=== PATIENT | male | born 1985 | race African-American/Black ===

== ENCOUNTER 2017-12-31 15:54 | Inpatient (IN) | payer OTHER, BC ==
--- NOTE | 2017-12-31 17:28 | PDOC ---
History of Present Illness - General Chief Complaint: Pain Stated Complaint: KNEE PAIN Time Seen by Provider: 12/31/17 16:16 History Source: Patient Exam Limitations: No Limitations - History of Present Illness Initial Comments: 32 y/o male presenting to [facility] ER via private auto complaining of right knee pain and swelling since Monday. Pt works with [employer] [place]. Symptoms began at work when he struck the knee on a garbage truck step. Was evaluated at both [facility] and Dr. Stu Watson orthopedic clinic on Monday Dr. Max told the pt he had a bad bone bruise. Pt has been using Advil and Naproxen, with some reported pain relief. Presents today for worsening pain and swelling with subjective fever and diaphoresis starting today. Denies bleeding or discharge. Is able to weight bare. Pain is worse when moving the knee out of a neutral position. Pt endorses monogamy in relationship without h/o STD or STD exposure. Denies PMH. No prescription medications. NKDA. No PCP of record. Past History - Past Medical History Allergies/Adverse Reactions: Allergies Allergy/AdvReac Type Severity Reaction Status Date / Time No Known Allergies Allergy Verified 12/31/17 16:04 Home Medications: Ambulatory Orders Ibuprofen 600 mg PO PRN 12/31/17 Naproxen 500 mg PO DAILY 12/31/17 COPD: No - Suicide/Smoking/Psychosocial Hx Smoking History: Current some day smoker Cigars Per Day: 1 Information on smoking cessation initiated: No Review of Systems - Review of Systems Constitutional: Yes: Diaphoresis, Fever. No: Chills Respiratory: No: Shortness of Breath Cardiac (ROS): No: Chest Pain ABD/GI: No: Constipated, Diarrhea, Nausea, Vomiting, Abdominal cramping Musculoskeletal: Yes: See HPI, Joint Pain, Joint Swelling Integumentary: Yes: Change in Color, Erythema *Physical Exam - Vital Signs Last Vital Signs Temp Pulse Resp BP Pulse Ox 98.5 F 105 H 20 147/83 99 12/31/17 15:59 12/31/17 15:59 12/31/17 15:59 12/31/17 15:59 12/31/17 15:59 - Physical Exam Comments: Constitutional: Well-developed, well-nourished no acute distress but obvious mild discomfort. Found semi fowlers in hospital bed. Alert and oriented x4. Answered all questions appropriately and completely. Speech was non-labored, non -pressured. HEENT: Normocephalic. No obvious external signs of trauma. Hearing grossly normal. No nasal discharge. Neck is supple, trachea is midline. No JVD. Cardiovascular: Regular rate and regular rhythm. No murmur, rubs, clicks, or gallops. Peripheral pulses: Radial pulses full. Respiratory: Breathing unlabored. Equal chest rise and fall. Clear to auscultation bilaterally. No stridor, no wheezing, no rhonchi. Gastrointestinal: abdomen is soft, non-tender, non-distended. Neuro: Alert and oriented. Moving all four extremities spontaneously. Skin/MSK: Warm and dry. Right knee: erythematous, hot, and enlarged on lateral aspect; small <1cm possible puncture wound; no lymphatic streaking; no obvious bony deformity or joint laxity. No other obvious lesions. Psych: Affect: appropriate. Mood: normal ED Treatment Course - LABORATORY CBC & Chemistry Diagram: 12/31/17 19:00 12/31/17 19:00 - RADIOLOGY Radiology Studies Ordered: Category Date Time Status KNEE 4 POS-RIGHT [RAD] Stat Radiology 12/31/17 17:02 Ordered Medical Decision Making - Medical Decision Making 32 y/o previously healthy male complaining of right knee pain, swelling, redness , and heat; acutely worsening over past two days. Traumatic injury on Monday on garbage truck surface. Afebrile. No hypotension but borderline tachycardia. Physical exam concerning for abscess with developing overlying cellulites. Low suspicion for fracture or tendon/muscle injury. Will obtain 4-view plain films, CBC, and CMP. Will start IV Zosyn. Ordered Toradol for pain relief. 12/31/17 19:07 Microblog sent to [facility] Hospitalist team for admission for IV abx therapy. Awaiting call back. 12/31/17 19:15 Leukoytosis to 17 noted. 12/31/17 19:[address] Cross telephone consulted with Dr. Valenzuela ( attending). *DC/Admit/Observation/Transfer Diagnosis at time of Disposition: Abscess of knee, right - Discharge Dispostion Condition at time of disposition: Good Decision to Admit order: Yes - Referrals - Patient Instructions - Post Discharge Activity
[2017-12-31] MEDS ORDERED: DIPHTH,PERTUSS(ACELL),TET 0.5 ML DISP.SYRIN IM ONE (17:29)
[2017-12-31] MEDS ORDERED: CEFAZOLIN 1 GM/D5W 1 GM/50 ML BAG IVPB ONE (18:40)
[2017-12-31] MEDS ORDERED: KETOROLAC TROMETHAMINE 30 MG/1 ML VIAL IVPUSH ONE (18:41)
[2017-12-31] MEDS ORDERED: ceFAZolin SODIUM 1 GM VIAL ONE (18:48)
[2017-12-31] MEDS ORDERED: KETOROLAC TROMETHAMINE 30 MG/1 ML VIAL ONE (18:49)
[2017-12-31] MEDS ORDERED: PIPERACILLIN/TAZOB 3.375 GM 3.375 GM in DEXTROSE 5%-WATER - 50 ML IVPB ONE (18:54)
[2017-12-31] MEDS ORDERED: PIPERACILLIN/TAZOB 3.375 GM 3.375 GM/50 ML BAG IVPB ONE (19:00)
[2017-12-31 19:10] LABS: BASO % 0.3 % (0-2.0); EOS % 0.1 % (0-4.5); HEMATOCRIT 45.3 % (35.4-49); HEMOGLOBIN 15.1 GM/dL (11.7-16.9); LYMPH % 7.9 % (8-40); MCH 27.9 pg (25.7-33.7); MCHC 33.4 g/dl (32.0-35.9); MEAN CELL VOLUME 83.8 fl (80-96); MEAN PLT VOLUME 8.8 fl (7.5-11.1); NEUT % 81.7 % (42.8-82.8); PLATELET COUNT 229 K/MM3 (134-434); RBC 5.41 M/mm3 (4.00-5.60); RDW 13.8 % (11.9-15.9)
--- NOTE | 2017-12-31 19:11 | PDOC ---
Attending Attestation - [facility] HPI: 12/31/17 19:16 The patient is a 32 year old male, with no significant past medical history, who presents to the ED complaining of right knee pain and swelling for the past 6 days. He reports that he was at work when he was struck on the knee by a garbage truck step causing the pain and swelling. He notes that he went to urgent and Dr. Stu Max (orthopedics) for evaluation. He was told that he had a bone bruise. He notes that his pain has been worsening and he has been diaphoretic lately. He has been using Advil and Naproxen for the pain with minimal relief. The patient is able to weight bare. Pain is worse when moving the knee out of a neutral position. The patient denies chest pain, shortness of breath, headache and dizziness. Denies fever, chills, nausea, vomiting, diarrhea or constipation. Denies dysuria , frequency, urgency and hematuria. Allergies: None Past surgical history: None reported Social History: No alcohol, tobacco or drug use reported - Physicial Exam PE: 12/31/17 19:15 Constitutional: Awake, alert, oriented. No acute distress. Head: Normocephalic. Atraumatic Eyes: PERRL. EOMI. Conjunctivae are not pale. ENT: Mucous membranes are moist and intact. Posterior pharynx without exudates or erythema. Uvula midline. Neck: Supple. Full ROM. No lymphadenopathy. Cardiovascular: Regular rate. Regular rhythm. S1, S2 regular. Distal pulses are 2+ and symmetric. Pulmonary/Chest: No evidence of respiratory distress. Clear to auscultation bilaterally No wheezing, rales or rhonchi. Abdominal: Soft and non-distended. There is no tenderness. No rebound, guarding or rigidity. No organomegaly. No palpable masses. Good bowel sounds. Back: No CVA tenderness. Musculoskeletal: (+) Right knee: erythematous, hot, and enlarged on lateral aspect; small <1cm possible puncture wound; no lymphatic streaking; no obvious bony deformity or joint laxity. No other obvious lesions. Tender and erythema is running down the lateral side of the right leg. No edema. No cyanosis. No clubbing. Full range of motion in all extremities. Nocalf tenderness. Radial/ pedal pulses are intact and 2+ bilaterally Skin: Skin is warm and dry. No petechiae. No purpura. Neurological: Alert and oriented to person, place, and time. Cranial nerves II -XII are grossly intact. Normal speech. Strength is grossly symmetric. No sensory deficits. Psychiatric: Good eye contact. Normal interaction, affect and behavior. <Bryce Fitch - Last Filed: 12/31/17 19:15> - Resident Resident Name: Gerry Echavarria - ED Attending Attestation I have performed the following: I have examined & evaluated the patient, The case was reviewed & discussed with the resident, I agree w/resident's findings & plan, Exceptions are as noted - HPI HPI: 12/31/17 19:10 32-year-old male who injured his knee while at work, he hit his knee with a garbage can and was seen by an orthopedist on Monday for his continued pain. He also went to urgent care Center for his continued pain and then presented to the emergency department today. - Medical Decision Making 12/31/17 20:06 plan IV guerasykristel, IMP cellulitis admit med/surg <Kavitha Valenzuela - Last Filed: 12/31/17 20:07>
[2017-12-31 19:36] LABS: ALBUMIN 4.6 g/dl (3.4-5.0); ANION GAP 9 MMOL/L (8-16); BLOOD UREA NITROGEN 9 mg/dL (7-18); CALCIUM 9.4 mg/dL (8.5-10.1); CHLORIDE 104 mmol/L (98-107); CO2 29 mmol/L (21-32); CREATININE 1.1 mg/dL (0.7-1.3); GLUCOSE,RANDOM 87 mg/dL (74-106); POTASSIUM 3.7 mmol/L (3.5-5.1); SGOT/AST 32 U/L (15-37); SGPT/ALT 35 U/L (12-78); SODIUM 142 mmol/L (136-145)
[2017-12-31 19:37] LABS: ALK PHOS 98 U/L (45-117); BILIRUBIN,TOTAL 0.8 mg/dL (0.2-1.0); TOT PROT 8.4 g/dl (6.4-8.2)
--- NOTE | 2017-12-31 19:48 | PN ---
Teaching Attending Note Name of Resident: Evy Wheeler ATTENDING PHYSICIAN STATEMENT I saw and evaluated the patient. I reviewed the resident's note and discussed the case with the resident. I agree with the resident's findings and plan as documented. SUBJECTIVE: Patient is a 32 year old man with history of tobacco use presenting to the ER with complaint of right knee pain and swelling 6 days. He works with [email or web address] [email or web address] and struck the knee on a garbage truck step. Was evaluated at both [facility] and Dr. Stu Watson orthopedic clinic on Monday Dr. Max told him he had a bad bone bruise. He has been using Advil and Naproxen, with some reported pain relief. Presents today for worsening pain and swelling with subjective fever and diaphoresis starting today. Denies bleeding or discharge. Is able to bear weight. Pain is worse when moving the knee out of a neutral position. OBJECTIVE: Alert Vital Signs Period Temp Pulse Resp BP Sys/Brady Pulse Ox Last 24 Hr 98.5 F 105 20 147/83 99 HEENT: No Jaundice, eye redness or discharge, PERRLA, EOMI. Normocephalic, atraumatic. External ears are normal and hearing is grossly intact. No nasal discharge. Neck: Supple, nontender. No palpable adenopathy or thyromegaly. No JVD Chest: Good effort. Clear to auscultation and percussion. Heart: Regular. No S3, rub or murmur Abdomen: Not distended, soft, nontender and no HSM. No rebound or guarding. Normoactive bowel sounds. Ext: Peripheral pulses intact. No leg edema. Right knee is erythematous, hot, and enlarged on lateral aspect. Skin: Warm and dry. No petechiae, rash or ecchymosis. Neuro: Alert. Oriented x3. CN 2-12 grossly intact. Sensation grossly intact in all four extremities and DTR are symmetric. Home Medications Medication Instructions Recorded Ibuprofen 600 mg PO PRN 12/31/17 Naproxen 500 mg PO DAILY 12/31/17 Abnormal Lab Results 12/31/17 19:00 WBC 17.0 H Absolute Neuts (auto) 13.9 H Lymphocytes % 7.9 L Nucleated RBC % 1 H ASSESSMENT AND PLAN: 1. Right knee septic arthritis/abscess - CT scan being done to ascertain if there is an abscess than can be drained. Will treat with IV clindamycin and zosyn. Consult ID and Ortho. Recheck BP - may have undiagnosed hypertension. 2. Tobacco Use We will provide patient all the necessary assistance to facilitate smoking cessation and prescribe Nicotine patch. 3. DVT prophylaxis - Lovenox 40 mg SQ q 24 hours. 4. Advance directives - Full code
--- NOTE | 2017-12-31 20:38 | HP ---
CHIEF COMPLAINT: red knee pain and swelling PCP: unknown HISTORY OF PRESENT ILLNESS: 32 y/o male with no significant pmh presents to the ED with right knee pain and swelling since last monday. Patient works for the de[employer] of [employer] and states that last monday during his shift he banged kis knee on the garbage trunk step and was in pain however kept going through the shift. The next morning patient woe up and his knee was very swollen and painful so he went to urgent care and he was given naproxen. The next day he went to the ortho Dr. Max and imaging was done and he was told he just had some "bone bruising". However, patient was still experiencing a lot of pain and swelling, even feeling feverish (though never took his temperature) and came to the ED. Patient denies any N/V or diarrhea. ER course was notable for: (1)WBC was 17 (2)patient given ancef and zosyn and toradol for pain (3) Recent Travel: none PAST MEDICAL HISTORY: none PAST SURGICAL HISTORY: none Social History: Smoking: smokes cigars once in a blue [place] Alcohol: social drinker - drinks 1-2 beers on a weekend Drugs: denies Family History: father and sister have hemophilia Allergies No Known Allergies Allergy (Verified 12/31/17 16:04) HOME MEDICATIONS: Home Medications Medication Instructions Recorded Ibuprofen 600 mg PO PRN 12/31/17 Naproxen 500 mg PO DAILY 12/31/17 REVIEW OF SYSTEMS CONSTITUTIONAL: Absent: fever, chills, diaphoresis, generalized weakness, malaise, loss of appetite, weight change HEENT: Absent: rhinorrhea, nasal congestion, throat pain, throat swelling, difficulty swallowing, mouth swelling, ear pain, eye pain, visual changes CARDIOVASCULAR: Absent: chest pain, syncope, palpitations, irregular heart rate, lightheadedness , peripheral edema RESPIRATORY: Absent: cough, shortness of breath, dyspnea with exertion, orthopnea, wheezing, stridor, hemoptysis GASTROINTESTINAL: Absent: abdominal pain, abdominal distension, nausea, vomiting, diarrhea, constipation, melena, hematochezia GENITOURINARY: Absent: dysuria, frequency, urgency, hesitancy, hematuria, flank pain, genital pain MUSCULOSKELETAL: Present: joint swelling, myalgia Absent: arthralgia, back pain, neck pain SKIN: Absent: rash, itching, pallor HEMATOLOGIC/IMMUNOLOGIC: Absent: easy bleeding, easy bruising, lymphadenopathy, frequent infections ENDOCRINE: Absent: unexplained weight gain, unexplained weight loss, heat intolerance, cold intolerance NEUROLOGIC: Absent: headache, focal weakness or paresthesias, dizziness, unsteady gait, seizure, mental status changes, bladder or bowel incontinence PSYCHIATRIC: Absent: anxiety, depression, suicidal or homicidal ideation, hallucinations. PHYSICAL EXAMINATION Vital Signs - 24 hr 12/31/17 15:59 Temperature 98.5 F Pulse Rate 105 H Respiratory 20 Rate Blood Pressure 147/83 O2 Sat by Pulse 99 Oximetry (%) GENERAL: Awake, alert, and fully oriented, in no acute distress. NECK:no JVD appreciated. LUNGS: Lungs CTA B/L; no rales, rhonchi, or wheezing . HEART: Regular rate and rhythm, normal S1 and S2 without murmur, rub or gallop. ABDOMEN: Soft, nontender, not distended, normoactive bowel sounds, no guarding, no rebound, no masses. No hepatomegaly or splenomegaly. MUSCULOSKELETAL: R knee: warm, erythematous, tender to palpation, lateral margin of knee also erythematous, 4/5 strength . EXTREMITIES: warm, well perfused, no clubbing/cyanosis or edema NEUROLOGICAL: Cranial nerves II-XII intact. Normal speech. Normal gait. PSYCHIATRIC: Cooperative. Good eye contact. Appropriate mood and affect. SKIN: Warm, dry, normal turgor, no rashes or lesions noted, normal capillary refill. Laboratory Results - last 24 hr 12/31/17 12/31/17 19:00 19:00 WBC 17.0 H RBC 5.41 Hgb 15.1 Hct 45.3 MCV 83.8 MCH 27.9 MCHC 33.4 RDW 13.8 Plt Count 229 MPV 8.8 Absolute Neuts (auto) 13.9 H Neutrophils % 81.7 Lymphocytes % 7.9 L Monocytes % 10.0 Eosinophils % 0.1 Basophils % 0.3 Nucleated RBC % 1 H Sodium 142 Potassium 3.7 Chloride 104 Carbon Dioxide 29 Anion Gap 9 BUN 9 Creatinine 1.1 Creat Clearance w eGFR > 60 Random Glucose 87 Calcium 9.4 Total Bilirubin 0.8 AST 32 ALT 35 Alkaline Phosphatase 98 Total Protein 8.4 H Albumin 4.6 ASSESSMENT/PLAN: 32 y/o male with no significant PMH presents to the ED with one week history of right knee pain/swelling/erythema following work injury. #1: Right knee pain possible cellulitis vs. abcess -Final XRAY read pending -CT Scan of LE ordered to evaluate for any fluid collection -started patient on zosyn and clindamycin -pain control with morphine PRN -ID consulted -Ortho consulted DVT Prophylaxis: Lovenox 40 SQ daily Problem List - Problem (1) Abscess of knee, right Code(s): L02.415 - CUTANEOUS ABSCESS OF RIGHT LOWER LIMB Visit type - Emergency Visit Emergency Visit: Yes ED Registration Date: 12/31/17 Care time: The patient presented to the Emergency Department on the above date and was hospitalized for further evaluation of their emergent condition. - New Patient This patient is new to me today: Yes Date on this admission: 12/31/17 - Critical Care Critical Care patient: No Hospitalist Screening - Colonoscopy Questionnaire Colonoscopy Questionnaire: Colonoscopy Questionnaire - Patient: 50 - 75 years old and never had a screening colonoscopy: Unknown History of colon or rectal polyps, or CA: Unknown History of IBD, Crohn's disease or UC: Unknown History of abdominal radiation therapy as a child: Unknown - Relative: 1 with colon or rectal CA, or polyps at age 60 or younger: Unknown Colon or rectal CA diagnosed at age 45 or younger: Unknown Multiple relatives with colon or rectal CA: Unknown - Outcome: Screening Result: Negative Screen
[2017-12-31] MEDS: ENOXAPARIN NA (PORCINE) 40 MG/0.4 ML DISP.SYRIN SQ SCH (21:00)
[2017-12-31] MEDS ORDERED: ENOXAPARIN NA (PORCINE) 40 MG/0.4 ML DISP.SYRIN SQ ONE (21:16)
[2017-12-31] MEDS ORDERED: MORPHINE SULFATE 2 MG/ML VIAL IVPUSH ONE (22:15)
[2017-12-31] MEDS ORDERED: MORPHINE SULFATE 2 MG/ML VIAL IVPUSH PRN (22:55)
[2017-12-31] MEDS ORDERED: DEXTROSE 5%-WATER - 50 ML IVPB ONE (23:23)
[2017-12-31] MEDS ORDERED: PIPERACILLIN/TAZOBACTAM 3.375 GM VIAL IVPB ONE (23:23)
[2017-12-31] MEDS: CLINDAMYCIN HCL 150 MG CAPSULE (FP) PO SCH (23:34)
[2018-01-01] MEDS ORDERED: PIPERACILLIN/TAZOB 3.375 GM 3.375 GM in DEXTROSE 5%-WATER - 50 ML IVPB ONE (01:00)
[2018-01-01 03:18] VITALS: BMI 22.4
[2018-01-01] MEDS: CLINDAMYCIN HCL 150 MG CAPSULE (FP) PO SCH ×2 (05:46→11:46)
[2018-01-01 07:29] LABS: HEMATOCRIT 41.1 % (35.4-49); HEMOGLOBIN 13.7 GM/dL (11.7-16.9); MCH 27.7 pg (25.7-33.7); MCHC 33.2 g/dl (32.0-35.9); MEAN CELL VOLUME 83.5 fl (80-96); PLATELET COUNT 192 K/MM3 (134-434); RBC 4.92 M/mm3 (4.00-5.60); RDW 14.2 % (11.9-15.9); WHITE BLOOD COUNT 14.1 K/mm3 (4.0-10.0)
[2018-01-01 08:01] LABS: CHLORIDE 103 mmol/L (98-107); POTASSIUM 3.7 mmol/L (3.5-5.1); SODIUM 142 mmol/L (136-145)
[2018-01-01 08:11] LABS: ALBUMIN 3.6 g/dl (3.4-5.0); ALK PHOS 85 U/L (45-117); ANION GAP 10 MMOL/L (8-16); BILIRUBIN,TOTAL 0.9 mg/dL (0.2-1.0); BLOOD UREA NITROGEN 12 mg/dL (7-18); CALCIUM 8.6 mg/dL (8.5-10.1); CO2 29 mmol/L (21-32); CREATININE 1.1 mg/dL (0.7-1.3); GLUCOSE,RANDOM 98 mg/dL (74-106); MAGNESIUM 1.8 mg/dL (1.8-2.4); PHOSPHOROUS 3.5 mg/dL (2.5-4.9); SGOT/AST 28 U/L (15-37); SGPT/ALT 34 U/L (12-78); TOT PROT 6.9 g/dl (6.4-8.2)
--- NOTE | 2018-01-01 09:45 | CONSULT ---
Consult - text type - Consultation Consultation Note: FULL CONSULT DICTATED IMP: CELLULITIS AND SMALL SUPERFICIAL ABSCESS ANTERIOR RIGHT KNEE - NO INTRAARTICULAR EXTENSION PLAN: IV ABX PER ID - WILL FOLLOW
--- NOTE | 2018-01-01 11:09 | CONS ---
DATE OF CONSULTATION: 01/01/2018 HISTORY: The patient is a 32-year-old male well known to me. I had seen the patient in my office last week. 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 There was no puncture antoine at that time just a great deal of pain. The patient presented to my office a few days later and complained of worsening pain inside of his knee. At that time, x-rays were performed, which were negative. A presumptive diagnosis at that time was made of a severe contusion, possible hematoma in the anterior aspect of his knee/prepatellar region. Patient admitted last night through the emergency room complaining of worsening pain in his knee and had a white count of 17,000. The patient was placed on antibiotic and cultured. Currently his white count is down to 14. He is afebrile but still complaining of a great deal of pain. PHYSICAL EXAMINATION: His right knee reveals erythema extending in the anterior aspect of his knee from superior patella down toward the tibial tubercle and from anterior down to the lateral side of the knee. There is a slight blistering of the skin over the patella lateral border. No obvious fluctuance. He has good range of motion of the knee itself with no effusion inside the knee. No lymphangitis. No lymphadenopathy. Calf is soft, nontender, neurovascularly intact. the knee. DIAGNOSTIC DATA: New x-ray is performed in the hospital, and a CAT scan failed to show any foreign body or fracture. IMPRESSION: Cellulitis, slight abscess possibly anterior and lateral aspect of the prepatellar region, questionably if there was some sort of puncture from the fall that was not apparent initially. PLAN: IV antibiotics as per Infectious Disease. Elevation. I will follow the patient. If a specific abscess demarcates itself, the patient may require irrigation and debridement. At this point, there is no place to open or culture. CHRISTOPHER ALAMO M.D. [id number]
--- NOTE | 2018-01-01 11:15 | PN ---
Physical Exam: SUBJECTIVE: Patient seen and examined Patient is feeling better, with no acute distress, no fever or chills. OBJECTIVE: Vital Signs Temperature 99.8 F H 01/01/18 05:42 Pulse Rate 95 H 01/01/18 05:42 Respiratory Rate 17 01/01/18 05:42 Blood Pressure 106/64 01/01/18 05:42 O2 Sat by Pulse Oximetry (%) 100 12/31/17 21:06 GENERAL: The patient is awake, alert, and fully oriented, in no acute distress. HEAD: Normal with no signs of trauma. EYES: PERRL, extraocular movements intact, sclera anicteric, conjunctiva clear. No ptosis. ENT: Ears normal, nares patent, oropharynx clear without exudates, moist mucous membranes. NECK: Trachea midline, full range of motion, supple. LUNGS: Breath sounds equal, clear to auscultation bilaterally, no wheezes, no crackles, no accessory muscle use. HEART: Regular rate and rhythm, S1, S2 without murmur, rub or gallop. ABDOMEN: Soft, nontender, nondistended, normoactive bowel sounds, no guarding, no rebound, no hepatosplenomegaly, no masses. EXTREMITIES: 2+ pulses, warm, well-perfused, right knee warm to touch NEUROLOGICAL: Cranial nerves II through XII grossly intact. Normal speech, gait not observed. PSYCH: Normal mood, normal affect. SKIN: Warm, dry, normal turgor, no rashes or lesions noted CBCD WBC 14.1 K/mm3 (4.0-10.0) H 01/01/18 06:30 RBC 4.92 M/mm3 (4.00-5.60) 01/01/18 06:30 Hgb 13.7 GM/dL (11.7-16.9) 01/01/18 06:30 Hct 41.1 % (35.4-49) 01/01/18 06:30 MCV 83.5 fl (80-96) 01/01/18 06:30 MCHC 33.2 g/dl (32.0-35.9) 01/01/18 06:30 RDW 14.2 % (11.9-15.9) 01/01/18 06:30 Plt Count 192 K/MM3 (134-434) 01/01/18 06:30 MPV 9.0 fl (7.5-11.1) 01/01/18 06:30 CMP Sodium 142 mmol/L (136-145) 01/01/18 06:30 Potassium 3.7 mmol/L (3.5-5.1) 01/01/18 06:30 Chloride 103 mmol/L (98-107) 01/01/18 06:30 Carbon Dioxide 29 mmol/L (21-32) 01/01/18 06:30 Anion Gap 10 MMOL/L (8-16) 01/01/18 06:30 BUN 12 mg/dL (7-18) 01/01/18 06:30 Creatinine 1.1 mg/dL (0.7-1.3) 01/01/18 06:30 Creat Clearance w eGFR > 60 (>60) 01/01/18 06:30 Random Glucose 98 mg/dL (74-106) 01/01/18 06:30 Calcium 8.6 mg/dL (8.5-10.1) 01/01/18 06:30 Total Bilirubin 0.9 mg/dL (0.2-1.0) 01/01/18 06:30 AST 28 U/L (15-37) 01/01/18 06:30 ALT 34 U/L (12-78) 01/01/18 06:30 Alkaline Phosphatase 85 U/L (45-117) D 01/01/18 06:30 Total Protein 6.9 g/dl (6.4-8.2) 01/01/18 06:30 Albumin 3.6 g/dl (3.4-5.0) 01/01/18 06:30 Current Medications Generic Name Dose Route Start Last Admin Trade Name Freq PRN Reason Stop Dose Admin Clindamycin HCl 300 mg 01/01/18 00:00 01/01/18 05:46 Cleocin - PO 300 mg Q6HPO HORACIO Administration Enoxaparin Sodium 40 mg 12/31/17 20:30 12/31/17 21:00 Lovenox - SQ 40 mg DAILY HORACIO Administration Naproxen 375 mg 01/01/18 11:15 Naprosyn - PO BID [facility] Home Medications Medication Instructions Recorded Ibuprofen 600 mg PO PRN 12/31/17 Naproxen 500 mg PO DAILY 12/31/17 Sequential axial images were obtained from the lower thigh through the upper calf. Coronal and sagittal reconstructed images were also performed. There is no evidence of fracture, dislocation or acute bony abnormalities. No significant degenerative arthritic changes are seen about the knee joint. There is no evidence of a joint effusion. There are edematous changes within the subcutaneous tissues anterior to the patella and extending through the level of the upper tibia. This could represent cellulitis. No discrete fluid collection suspicious for an abscess is identified. Clinical correlation and follow-up is now recommended. IMPRESSION: 1. No evidence of acute bony abnormalities. 2. Edematous changes within the subcutaneous tissues tear to the patella extending through the upper tibia. This suggests cellulitis without abscess formation. Clinical correlation and follow-up recommended. Please see above discussion. Reported By: Jose Manuel Frederick MD 01/01/18 1114 A/P: Patient is a 32 y/o male with no significant PMH presents to the ED with one week history of right knee pain/swelling/erythema. due to banging his knee on the garbage truck- wearing shorts ,last Monday # Acute Cellulitis of Right knee with pain but no abcess reproted : CT Scan of LE result as above on IV , on IV zosyn and vanco as per ID -patiet is refusing morphine, started the patient on Naprosyn 375 BID with food , patient was on Motrin at home -ID consulted and Ortho consulted appreciated. DVT Prophylaxis: Lovenox 40 SQ daily Visit type - Emergency Visit Emergency Visit: Yes ED Registration Date: 12/31/17 Care time: The patient presented to the Emergency Department on the above date and was hospitalized for further evaluation of their emergent condition. - New Patient This patient is new to me today: Yes Date on this admission: 01/01/18 - Critical Care Critical Care patient: No - Discharge Referral Referred to [facility] Med P.C.: No
[2018-01-01] MEDS: NAPROXEN 375 MG TABLET (FP) PO SCH ×2 (11:44→21:32)
[2018-01-01] MEDS: ENOXAPARIN NA (PORCINE) 40 MG/0.4 ML DISP.SYRIN SQ SCH (11:45)
--- NOTE | 2018-01-01 15:03 | PN ---
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
--- NOTE | 2018-01-01 15:28 | CONS ---
DATE OF CONSULTATION: DATE OF DICTATION: 01/01/2018 REQUESTING PHYSICIAN: Hospitalist service HISTORY: This is a 32-year-old man who last Alexsander injured his right knee. 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 He was wearing short at that time. The knee became very swollen, so [facility] who referred him to orthopaedics. The feeling was that he had probably just banged his leg very hard. There were no signs at that time of infection. He was treated with Naproxen. He continued to have pain and swelling. He started running a fever and came to the emergency room. In the ER, he had a white count of 17,000, and he was admitted for further evaluation. Not taken any antibiotics in the last week. He was wearing shorts at the time, but he does not recall having a skin abrasion. There is no history of any recent travel. PAST MEDICAL HISTORY: Negative. PAST SURGICAL HISTORY: He had stitches on the side of his leg due to an injury when he was a child also of the right lower extremity. SOCIAL HISTORY: Occasional cigar. Social alcohol. No drug use. FAMILY HISTORY: Mother and father with hemophilia. ALLERGIES: He has no known drug allergies. MEDICATIONS: He has been taking Naproxen. REVIEW OF SYSTEMS: He has felt feverish and has had chills. There has been no nausea, vomiting, diarrhea, or dysuria. PHYSICAL EXAMINATION: General: He is a pleasant young man in no acute distress. Vital Signs: Current temperature is 99.7, T-max 99.8, pulse of 102, blood pressure 114/65, respiratory rate is 18. HEENT: He is normocephalic. His eyes are anicteric. Neck: Supple. Lungs: Clear to auscultation. Heart: Regular rate and rhythm. Abdomen: Soft and nontender. Extremities: Notable for swelling and edema of the right knee. He is starting to have some areas of blistering on the lateral aspect. He has full range of motion of the knee and is able to bend it. His only restriction is a pressure sensation. DIAGNOSTIC DATA: He had a CAT scan of his lower leg done that showed no bony abnormalities. Edematous changes in the subcutaneous tissue suggestive of cellulitis without abscess formation. Labs are notable for a white count yesterday with 17, this morning 14. BUN 12, creatinine 1.1. Normal LFTs. Blood cultures are pending. In summary, this is a 32-year-old man with a soft tissue injury of his right leg with probable early abscess formation. I would treat him with vancomycin and Zosyn given the fact that this was a garbage truck injury, so we would need to cover for gram-negatives as well as gram-positive organisms. I suspect over the next 24-48 hours he will require drainage. The case was discussed with Dr. Max who is following the patient closely. Would continue the same antibiotics and follow up cultures. LALO VILLARREAL M.D. [id number]
[2018-01-01] MEDS ORDERED: DEXTROSE 5%-WATER 100 ML IVPB ONE (17:20)
[2018-01-01] MEDS ORDERED: PIPERACILLIN/TAZOBACTAM 4.5 GM VIAL IVPB ONE (17:20)
[2018-01-01] MEDS: PIPERACILLIN/TAZOB 4.5 GM 4.5 GM in DEXTROSE 5%-WATER 100 ML IVPB SCH ×2 (17:24→17:26)
[2018-01-01] MEDS: VANCOMYCIN 1,000 MG in DEXTROSE 5%-WATER - 250 ML IVPB SCH (17:27)
[2018-01-02] MEDS: PIPERACILLIN/TAZOB 4.5 GM 4.5 GM in DEXTROSE 5%-WATER 100 ML IVPB SCH ×3 (02:13→18:08)
[2018-01-02] MEDS ORDERED: PIPERACILLIN/TAZOBACTAM 4.5 GM VIAL IVPB ONE ×3 (03:48→16:22)
[2018-01-02] MEDS ORDERED: DEXTROSE 5%-WATER 100 ML IVPB ONE ×3 (03:49→16:22)
[2018-01-02] MEDS: VANCOMYCIN 1,000 MG in DEXTROSE 5%-WATER - 250 ML IVPB SCH ×2 (04:58→16:10)
[2018-01-02 07:27] LABS: BASO % 0.2 % (0-2.0); EOS % 0.3 % (0-4.5); HEMATOCRIT 41.1 % (35.4-49); HEMOGLOBIN 13.6 GM/dL (11.7-16.9); LYMPH % 9.3 % (8-40); MCH 27.6 pg (25.7-33.7); MEAN CELL VOLUME 83.7 fl (80-96); MEAN PLT VOLUME 8.8 fl (7.5-11.1); MONO % 8.4 % (3.8-10.2); NEUT % 81.8 % (42.8-82.8); PLATELET COUNT 192 K/MM3 (134-434); RBC 4.92 M/mm3 (4.00-5.60); RDW 14.3 % (11.9-15.9); WHITE BLOOD COUNT 11.1 K/mm3 (4.0-10.0)
[2018-01-02 07:47] LABS: ALBUMIN 3.6 g/dl (3.4-5.0); ANION GAP 12 MMOL/L (8-16); BLOOD UREA NITROGEN 13 mg/dL (7-18); CALCIUM 8.9 mg/dL (8.5-10.1); CHLORIDE 101 mmol/L (98-107); CO2 29 mmol/L (21-32); GLUCOSE,RANDOM 122 mg/dL (74-106); POTASSIUM 3.8 mmol/L (3.5-5.1); SGOT/AST 41 U/L (15-37); SGPT/ALT 50 U/L (12-78); SODIUM 142 mmol/L (136-145)
[2018-01-02 07:50] LABS: ALK PHOS 96 U/L (45-117); BILIRUBIN,TOTAL 0.9 mg/dL (0.2-1.0); TOT PROT 7.2 g/dl (6.4-8.2)
[2018-01-02] MEDS ORDERED: PT OWN MED DRAWER 7, Y5N ONE ×2 (09:29→15:49)
[2018-01-02] MEDS: NAPROXEN 375 MG TABLET (FP) PO SCH ×2 (11:07→22:02)
[2018-01-02] MEDS: ENOXAPARIN NA (PORCINE) 40 MG/0.4 ML DISP.SYRIN SQ SCH (11:08)
--- NOTE | 2018-01-02 11:19 | PN ---
Progress Note (short form) - Note Progress Note: Ortho Pt seen and examined- right knee feeling better
--- NOTE | 2018-01-02 11:21 | PN ---
Progress Note (short form) - Note Progress Note: Ortho Pt seen and examined- right knee feeling better Selected Entries 01/02/18 09:00 Temperature 99.0 F Pulse Rate 80 Respiratory 18 Rate Blood Pressure 122/73 Laboratory Tests 01/02/18 06:30 WBC 11.1 H Hgb 13.6 Hct 41.1 Plt Count 192 + blister on lateral aspect of knee, fluid filled, decr pain, incr rom, calf soft, nt, nvi a/p consent obtained, under sterile technique, I&D performed, purulent drainage noted and sent for culture, sterile pressure dressing applied, procedure tolerated well Abx as per ID rom exercises will follow d/w Dr. Max
--- NOTE | 2018-01-02 14:43 | PN ---
Physical Exam: SUBJECTIVE: Patient seen and examined at bedside. No acute complaints. Endorses decrease in size and pain of right knee lesion. OBJECTIVE: Vital Signs Period Temp Pulse Resp BP Sys/Brady Pulse Ox Last 24 Hr 98.1 F-99.7 F 71-102 18-18 114-127/59-73 GENERAL: A&Ox3, NAD HEAD: NC/AT EYES: PERRLA, EOMI ENT: moist mucous membranes NECK: Trachea midline, full range of motion, supple. LUNGS: CTA b/l HEART: RRR no m/r/g ABDOMEN: +bs, soft, NTND, no HSM, no masses EXTREMITIES: 2+ pulses, warm, well-perfused, no edema; non-tender 3cm fluid filled blister overlying right knee NEUROLOGICAL: CN II-XII intact, 5/5 strength throughout, sensorium intact PSYCH: Normal mood, normal affect. Laboratory Results - last 24 hr 01/02/18 01/02/18 06:30 06:30 WBC 11.1 H RBC 4.92 Hgb 13.6 Hct 41.1 MCV 83.7 MCH 27.6 MCHC 33.0 RDW 14.3 Plt Count 192 MPV 8.8 Absolute Neuts (auto) 9.1 H Neutrophils % 81.8 Lymphocytes % 9.3 Monocytes % 8.4 Eosinophils % 0.3 D Basophils % 0.2 Nucleated RBC % 0 Sodium 142 Potassium 3.8 Chloride 101 Carbon Dioxide 29 Anion Gap 12 BUN 13 Creatinine 1.0 Creat Clearance w eGFR > 60 Random Glucose 122 H D Calcium 8.9 Total Bilirubin 0.9 AST 41 H D ALT 50 D Alkaline Phosphatase 96 D Total Protein 7.2 Albumin 3.6 Active Medications Generic Name Dose Route Start Last Admin Trade Name Freq PRN Reason Stop Dose Admin Enoxaparin Sodium 40 mg 12/31/17 20:30 01/02/18 11:08 Lovenox - SQ 40 mg DAILY HORACIO Administration Vancomycin HCl 1,000 mg/ 250 mls @ 166.667 mls/hr 01/01/18 16:00 01/02/18 04: 58 Dextrose IVPB 166.667 mls/hr Q12H HORACIO Administration Protocol Piperacillin Sod/Tazobactam 100 mls @ 200 mls/hr 01/01/18 15:00 01/02/18 11: 04 Sod 4.5 gm/ Dextrose IVPB 200 mls/hr Q8H-IV HORACIO Administration Protocol Naproxen 375 mg 01/01/18 11:30 01/02/18 11:07 Naprosyn - PO 375 mg BID HORACIO Administration ASSESSMENT/PLAN: 32 y/o M w/ no significant PMHx admitted for cellulitis/cutaneous abscess overlying right knee 2/2 trauma involving garbage truck #cellulitis/cutaneous abscess -WBC 17 on admission, now 11.1 -Vanc/Zosyn day 2 -ID consulted (Dr. Guzman) -ortho consulted (Dr. Max), underwent I&D and pending culture -BCx NGTD #FEN -no IVF -lytes wnl -sodium controlled diet #DVT PPx -lovenox 40sq #dispo -med/surg Visit type - Emergency Visit Emergency Visit: No - New Patient This patient is new to me today: Yes Date on this admission: 01/02/18 - Critical Care Critical Care patient: No
--- NOTE | 2018-01-02 16:42 | PN ---
Teaching Attending Note Name of Resident: Patrice Deshpande ATTENDING PHYSICIAN STATEMENT I saw and evaluated the patient. I reviewed the resident's note and discussed the case with the resident. I agree with the resident's findings and plan as documented. SUBJECTIVE: OBJECTIVE: Vital Signs Temperature 98.5 F 01/02/18 15:13 Pulse Rate 79 01/02/18 15:13 Respiratory Rate 18 01/02/18 15:13 Blood Pressure 104/55 01/02/18 15:13 O2 Sat by Pulse Oximetry (%) 100 01/02/18 09:00 CBCD WBC 11.1 K/mm3 (4.0-10.0) H 01/02/18 06:30 RBC 4.92 M/mm3 (4.00-5.60) 01/02/18 06:30 Hgb 13.6 GM/dL (11.7-16.9) 01/02/18 06:30 Hct 41.1 % (35.4-49) 01/02/18 06:30 MCV 83.7 fl (80-96) 01/02/18 06:30 MCHC 33.0 g/dl (32.0-35.9) 01/02/18 06:30 RDW 14.3 % (11.9-15.9) 01/02/18 06:30 Plt Count 192 K/MM3 (134-434) 01/02/18 06:30 MPV 8.8 fl (7.5-11.1) 01/02/18 06:30 CMP Sodium 142 mmol/L (136-145) 01/02/18 06:30 Potassium 3.8 mmol/L (3.5-5.1) 01/02/18 06:30 Chloride 101 mmol/L (98-107) 01/02/18 06:30 Carbon Dioxide 29 mmol/L (21-32) 01/02/18 06:30 Anion Gap 12 MMOL/L (8-16) 01/02/18 06:30 BUN 13 mg/dL (7-18) 01/02/18 06:30 Creatinine 1.0 mg/dL (0.7-1.3) 01/02/18 06:30 Creat Clearance w eGFR > 60 (>60) 01/02/18 06:30 Random Glucose 122 mg/dL (74-106) H D 01/02/18 06:30 Calcium 8.9 mg/dL (8.5-10.1) 01/02/18 06:30 Total Bilirubin 0.9 mg/dL (0.2-1.0) 01/02/18 06:30 AST 41 U/L (15-37) H D 01/02/18 06:30 ALT 50 U/L (12-78) D 01/02/18 06:30 Alkaline Phosphatase 96 U/L (45-117) D 01/02/18 06:30 Total Protein 7.2 g/dl (6.4-8.2) 01/02/18 06:30 Albumin 3.6 g/dl (3.4-5.0) 01/02/18 06:30 Current Medications Generic Name Dose Route Start Last Admin Trade Name Freq PRN Reason Stop Dose Admin Enoxaparin Sodium 40 mg 12/31/17 20:30 01/02/18 11:08 Lovenox - SQ 40 mg DAILY HORACIO Administration Vancomycin HCl 1,000 mg/ 250 mls @ 166.667 mls/hr 01/01/18 16:00 01/02/18 16: 10 Dextrose IVPB 166.667 mls/hr Q12H HORACIO Administration Protocol Piperacillin Sod/Tazobactam 100 mls @ 200 mls/hr 01/01/18 15:00 01/02/18 11: 04 Sod 4.5 gm/ Dextrose IVPB 200 mls/hr Q8H-IV HORACIO Administration Protocol Naproxen 375 mg 01/01/18 11:30 01/02/18 11:07 Naprosyn - PO 375 mg BID HORACIO Administration Home Medications Medication Instructions Recorded Ibuprofen 600 mg PO PRN 12/31/17 Naproxen 500 mg PO DAILY 12/31/17 Microbiology 12/31/17 19:05 Blood - Peripheral Venous Blood Culture - Preliminary NO GROWTH OBTAINED AFTER 24 HOURS, INCUBATION TO CONTINUE FOR 4 DAYS. 12/31/17 19:05 Blood - Peripheral Venous Blood Culture - Preliminary NO GROWTH OBTAINED AFTER 24 HOURS, INCUBATION TO CONTINUE FOR 4 DAYS. Laboratory Tests 12/31/17 01/01/18 01/02/18 19:00 06:30 06:30 WBC 17.0 H 14.1 H 11.1 H Sequential axial images were obtained from the lower thigh through the upper calf. Coronal and sagittal reconstructed images were also performed. There is no evidence of fracture, dislocation or acute bony abnormalities. No significant degenerative arthritic changes are seen about the knee joint. There is no evidence of a joint effusion. There are edematous changes within the subcutaneous tissues anterior to the patella and extending through the level of the upper tibia. This could represent cellulitis. No discrete fluid collection suspicious for an abscess is identified. Clinical correlation and follow-up is now recommended. IMPRESSION: 1. No evidence of acute bony abnormalities. 2. Edematous changes within the subcutaneous tissues tear to the patella extending through the upper tibia. This suggests cellulitis without abscess formation. Clinical correlation and follow-up recommended. Please see above discussion. Reported By: Jose Manuel Frederick MD 01/01/18 1114 ASSESSMENT AND PLAN: Patient is a 32 y/o male with no significant PMH presents to the ED with one week history of right knee pain/swelling/erythema. due to banging his knee on the garbage truck- wearing shorts ,last Monday # Acute Cellulitis of Right knee with pain but no abcess reported : CT Scan of LE result as above on IV , on IV zosyn and vanco as per ID -patient is refusing morphine, started the patient on Naprosyn 375 BID with food, patient was on Motrin at home # s/p I&D by 's PA , with purulent drainage as per 's PA , pending culture of the wound -ID consulted and Ortho consulted appreciated. # Acute Leukocytosis improving DVT Prophylaxis: Lovenox 40 SQ daily follow the wound Culture
[2018-01-02] MEDS ORDERED: KETOROLAC TROMETHAMINE 30 MG/1 ML VIAL IVPUSH ONE (16:50)
--- NOTE | 2018-01-02 18:01 | PN ---
Progress Note (short form) - Note Progress Note: abscess drained at bedside this am Vital Signs Period Temp Pulse Resp BP Sys/Brady Pulse Ox Last 24 Hr 98.1 F-99.0 F 71-88 18-18 104-127/55-73 100 knee with large amount of purulent blood still draining CBC, BMP 01/02/18 06:30 01/02/18 06:30 Microbiology 12/31/17 19:05 Blood - Peripheral Venous Blood Culture - Preliminary NO GROWTH OBTAINED AFTER 24 HOURS, INCUBATION TO CONTINUE FOR 4 DAYS. 12/31/17 19:05 Blood - Peripheral Venous Blood Culture - Preliminary NO GROWTH OBTAINED AFTER 24 HOURS, INCUBATION TO CONTINUE FOR 4 DAYS. imp/reccd 32 year old man banged his knee on the garbage truck- wearing shorts-last Monday painful knee- [facility]-given naprosyn for pain developed fever and worsening erythema and pain and came to ED s/p drainage of the knee abscess continue vanco/zosyn f/u culture f/u vanco trough ordered for am Problem List - Problems (1) Abscess of knee, right Code(s): L02.415 - CUTANEOUS ABSCESS OF RIGHT LOWER LIMB
[2018-01-03] MEDS ORDERED: DEXTROSE 5%-WATER 100 ML IVPB ONE ×2 (00:36→09:45)
[2018-01-03] MEDS ORDERED: PIPERACILLIN/TAZOBACTAM 4.5 GM VIAL IVPB ONE ×2 (00:36→09:45)
[2018-01-03] MEDS: PIPERACILLIN/TAZOB 4.5 GM 4.5 GM in DEXTROSE 5%-WATER 100 ML IVPB SCH ×2 (02:19→10:33)
[2018-01-03] MEDS: VANCOMYCIN 1,000 MG in DEXTROSE 5%-WATER - 250 ML IVPB SCH ×2 (03:35→17:11)
[2018-01-03 07:39] LABS: ANION GAP 5 MMOL/L (8-16); BLOOD UREA NITROGEN 12 mg/dL (7-18); CALCIUM 8.9 mg/dL (8.5-10.1); CHLORIDE 102 mmol/L (98-107); CO2 33 mmol/L (21-32); GLUCOSE,RANDOM 90 mg/dL (74-106); POTASSIUM 3.9 mmol/L (3.5-5.1); SODIUM 140 mmol/L (136-145)
[2018-01-03 07:40] LABS: CREATININE 1.1 mg/dL (0.7-1.3)
[2018-01-03 07:47] LABS: BASO % 0.5 % (0-2.0); EOS % 0.8 % (0-4.5); HEMATOCRIT 41.2 % (35.4-49); HEMOGLOBIN 13.6 GM/dL (11.7-16.9); MCH 27.7 pg (25.7-33.7); MCHC 33.1 g/dl (32.0-35.9); MEAN CELL VOLUME 83.9 fl (80-96); MEAN PLT VOLUME 8.6 fl (7.5-11.1); NEUT % 73.7 % (42.8-82.8); PLATELET COUNT 210 K/MM3 (134-434); RBC 4.91 M/mm3 (4.00-5.60); RDW 13.8 % (11.9-15.9); WHITE BLOOD COUNT 8.3 K/mm3 (4.0-10.0)
--- NOTE | 2018-01-03 08:49 | PN ---
Physical Exam: SUBJECTIVE: Patient seen and examined at bedside. No acute complaints. Had I&D of R knee lesion, pain under control. Having normal BMs and urination. OBJECTIVE: Vital Signs Period Temp Pulse Resp BP Sys/Brady Pulse Ox Last 24 Hr 98.4 F-99.1 F 72-80 18-20 104-122/55-76 100 GENERAL: A&Ox3, NAD HEAD: NC/AT EYES: PERRLA, EOMI ENT: moist mucous membranes NECK: Trachea midline, full range of motion, supple. LUNGS: CTA b/l HEART: RRR no m/r/g ABDOMEN: +bs, soft, NTND, no HSM, no masses EXTREMITIES: 2+ pulses, warm, well-perfused, no edema; R knee in surgical dressing NEUROLOGICAL: CN II-XII intact, 5/5 strength throughout, sensorium intact PSYCH: Normal mood, normal affect Laboratory Results - last 24 hr 01/03/18 01/03/18 06:20 06:20 WBC 8.3 RBC 4.91 Hgb 13.6 Hct 41.2 MCV 83.9 MCH 27.7 MCHC 33.1 RDW 13.8 Plt Count 210 MPV 8.6 Absolute Neuts (auto) 6.1 Neutrophils % 73.7 Lymphocytes % 13.0 D Monocytes % 12.0 H Eosinophils % 0.8 D Basophils % 0.5 Nucleated RBC % 0 Sodium 140 Potassium 3.9 Chloride 102 Carbon Dioxide 33 H Anion Gap 5 L BUN 12 Creatinine 1.1 Creat Clearance w eGFR > 60 Random Glucose 90 D Calcium 8.9 Active Medications Generic Name Dose Route Start Last Admin Trade Name Valenteq PRN Reason Stop Dose Admin Enoxaparin Sodium 40 mg 12/31/17 20:30 01/02/18 11:08 Lovenox - SQ 40 mg DAILY HORACIO Administration Vancomycin HCl 1,000 mg/ 250 mls @ 166.667 mls/hr 01/01/18 16:00 01/03/18 03: 35 Dextrose IVPB 166.667 mls/hr Q12H HORACIO Administration Protocol Piperacillin Sod/Tazobactam 100 mls @ 200 mls/hr 01/01/18 15:00 01/03/18 02: 19 Sod 4.5 gm/ Dextrose IVPB 200 mls/hr Q8H-IV HORACIO Administration Protocol Naproxen 375 mg 01/01/18 11:30 09/04/18 22:02 Naprosyn - PO 375 mg BID HORACIO Administration ASSESSMENT/PLAN: 32 y/o M w/ no significant PMHx admitted for cellulitis/cutaneous abscess overlying right knee 2/2 trauma involving garbage truck #cellulitis/cutaneous abscess -WBC down to 8.3 -s/p bedside I&D (Dr. Max) -from Dr. Max's note: "PATIENT'S CONDITION IS WORSE TODAY. 5CC OF PUS EXPRESSED FROM WOUND. I THEREFORE HAVE SCHEDULED HIM FOR AN I&D TOMORROW IN THE OR. CONTINUE IV ABX FOR NOW. PATIENT ATE BREAKFAST TODAY SO WE CANT OPERATE FOR 8 HOURS. " -Patient was reluctant to go to OR but now agrees -NPO after midnight -Lovenox held -Wound Cx MSSA, BCx NGTD -Vancomycin day 3 -Zosyn d/c'd per ID -ID consulted (Dr. Guzman) -BCx NGTD -Naproxen for pain, two one-time doses of ketorolac 30 -PT consulted #FEN -no IVF -lytes wnl -sodium controlled diet #DVT PPx -lovenox held #dispo -med/surg Visit type - Emergency Visit Emergency Visit: No - New Patient This patient is new to me today: No - Critical Care Critical Care patient: No
[2018-01-03] MEDS ORDERED: PT OWN MED DRAWER 7, Y5N ONE ×3 (09:45→17:08)
--- NOTE | 2018-01-03 10:11 | PN ---
Progress Note (short form) - Note Progress Note: PATIENT'S CONDITION IS WORSE TODAY. 5CC OF PUS EXPRESSED FROM WOUND. I THEREFORE HAVE SCHEDULED HIM FOR AN I&D TOMORROW IN THE OR. CONTINUE IV ABX FOR NOW. PATIENT ATE BREAKFAST TODAY SO WE CANT OPERATE FOR 8 HOURS.
[2018-01-03] MEDS: NAPROXEN 375 MG TABLET (FP) PO SCH ×2 (10:33→22:02)
[2018-01-03] MEDS: ENOXAPARIN NA (PORCINE) 40 MG/0.4 ML DISP.SYRIN SQ SCH (10:33)
--- NOTE | 2018-01-03 16:33 | PN ---
Progress Note (short form) - Note Progress Note: afebrile still with purulent drainage from the knee for opeerative debridement in the am Vital Signs Period Temp Pulse Resp BP Sys/Brady Pulse Ox Last 24 Hr 98.4 F-99.1 F 72-101 18-20 107-130/67-87 98 knee is fluctuant some purulent drainage noted CBC, BMP 01/03/18 06:20 01/03/18 06:20 Microbiology 01/02/18 11:15 Knee - Right Gram Stain - Final 01/02/18 11:15 Knee - Right Wound Culture - Preliminary Presumptive Mssa (Pbp2a Neg) 12/31/17 19:05 Blood - Peripheral Venous Blood Culture - Preliminary NO GROWTH OBTAINED AFTER 48 HOURS, INCUBATION TO CONTINUE FOR 3 DAYS. 12/31/17 19:05 Blood - Peripheral Venous Blood Culture - Preliminary NO GROWTH OBTAINED AFTER 48 HOURS, INCUBATION TO CONTINUE FOR 3 DAYS. vanco trough pending imp/reccd s/p drainage of the knee abscess continue vancomycin d/c zosyn for operative drainage in am Problem List - Problems (1) Abscess of knee, right Code(s): L02.415 - CUTANEOUS ABSCESS OF RIGHT LOWER LIMB
--- NOTE | 2018-01-03 18:37 | PN ---
Teaching Attending Note Name of Resident: Adelaida Razo ATTENDING PHYSICIAN STATEMENT I saw and evaluated the patient. I reviewed the resident's note and discussed the case with the resident. I agree with the resident's findings and plan as documented. SUBJECTIVE: No fever or chills . has pain in R knee. OBJECTIVE: NAD CV: RRr Lungs; CTAB ext : R knee with increased warmth , small incision with no drainage . no knee effusion detected ASSESSMENT AND PLAN: 32 y/o lady with no significant PMH who presented with R knee pain and swelling. He was found to have cellulites of the knee with superficial abscess formation 1- cellulites of the knee with superficial abscess formation : - for I&D again tomoror w - abx : vanco . increase dose for low trough - off zosn - cx reviewed. will start DVT px after procedure tomorrow
[2018-01-04] MEDS ORDERED: VANCOMYCIN 1,250 MG in DEXTROSE 5%-WATER - 250 ML IVPB SCH ×2 (04:00→16:00)
[2018-01-04] MEDS ORDERED: VANCOMYCIN 1,250 MG in DEXTROSE 5%-WATER - 250 ML IVPB ONE (04:00)
[2018-01-04 08:15] LABS: BASO % 0.3 % (0-2.0); EOS % 0.9 % (0-4.5); HEMATOCRIT 45.2 % (35.4-49); LYMPH % 16.4 % (8-40); MCH 27.9 pg (25.7-33.7); MCHC 33.1 g/dl (32.0-35.9); MEAN CELL VOLUME 84.3 fl (80-96); MEAN PLT VOLUME 8.6 fl (7.5-11.1); MONO % 10.9 % (3.8-10.2); NEUT % 71.5 % (42.8-82.8); PLATELET COUNT 283 K/MM3 (134-434); RBC 5.37 M/mm3 (4.00-5.60); RDW 14.1 % (11.9-15.9); WHITE BLOOD COUNT 6.6 K/mm3 (4.0-10.0)
[2018-01-04 08:55] LABS: ANION GAP 11 MMOL/L (8-16); BLOOD UREA NITROGEN 14 mg/dL (7-18); CALCIUM 9.4 mg/dL (8.5-10.1); CHLORIDE 104 mmol/L (98-107); CO2 26 mmol/L (21-32); GLUCOSE,RANDOM 95 mg/dL (74-106); POTASSIUM 4.4 mmol/L (3.5-5.1); SODIUM 141 mmol/L (136-145)
[2018-01-04] MEDS ORDERED: PROPOFOL 20 ML ONE (09:55)
[2018-01-04] MEDS ORDERED: MIDAZOLAM HCL 2 MG/2 ML SINGLE DOSE VIAL ONE (09:56)
--- NOTE | 2018-01-04 10:06 | OP ---
Operative Note - Note: Operative Date: 01/04/18 Pre-Operative Diagnosis: right knee infected prepatellar bursa Operation: right knee open I and D and debridement pre patellar bursa Post-Operative Diagnosis: Same as Pre-op Surgeon: Daniel Ortiz [employer] Sales Representative: Luis Carlos Rush Anesthesiologist/PRODUCTION INTERN: Mitzi Montalvo Anesthesia: General Specimens Removed: soft tissue right pre patellar bursa Estimated Blood Loss (mls): 10 Drains, Volume Out (mls): 0 Blood Volume Replaced (mls): 0 Fluid Volume Replaced (mls): 0 Operative Report Dictated: Yes
[2018-01-04] MEDS ORDERED: BACITRACIN 50,000 UNITS VIAL TP ONE (10:28)
[2018-01-04] MEDS ORDERED: IBUPROFEN 800 MG/8 ML IJ IVPB PRN (10:53)
[2018-01-04] MEDS ORDERED: ONDANSETRON 4 MG/2 ML VIAL IVPUSH PRN (10:53)
[2018-01-04] MEDS ORDERED: LACTATED RINGERS SOLUTION 1,000 ML IV SCH (11:00)
--- NOTE | 2018-01-04 11:23 | OP ---
DATE OF OPERATION: 01/04/2018 PREOPERATIVE DIAGNOSIS: Infected right knee prepatellar bursa. POSTOPERATIVE DIAGNOSIS: Infected right knee prepatellar bursa. PROCEDURE: Open incision and drainage and debridement, right knee prepatellar bursa abscess. SURGEON: Alisha Solis MD COMMERCIAL INSTRUCTOR SUPERVISOR: MAGDALENA Sagastume ANESTHESIOLOGIST: Mitzi Montalvo MD ANESTHESIA: LMA anesthesia. DRAINS: One SHARRON drain. SPECIMEN: Soft tissue, right prepatellar bursa. BLOOD LOSS: Minimal. BLOOD GIVEN: None. FLUID REPLACEMENT: 500 mL. INDICATION: This patient is a 32-year-old male with preoperative diagnosis of an infection of the right knee prepatellar bursa, and it had already opened and decompressed to some degree. Patient understands the potential risk, complications, alternatives, and benefits of surgical versus nonsurgical treatment. DESCRIPTION OF PROCEDURE: The patient was brought into the operating room, peripheral IV placed and IV sedation given. LMA anesthesia was induced. He was placed into the supine position, and the right lower extremity was prepped and draped in a sterile fashion, elevated, and exsanguinated with Esmarch bandage, and tourniquet inflated to 250 mmHg. A number 15 scalpel blade was utilized to extend the opening proximally by about 2 cm. Next, I used the Metzenbaum scissors to open up the abscess and some adhesions. Next, I used a small rongeur to debride infected tissue and prepatellar bursal tissue. This was all passed off the field as specimen. Next, I used 2 L of normal saline with 50,000 units bacitracin in each under the pulse lavage to thoroughly irrigate the abscess in the prepatellar bursa. The area was copiously irrigated and washed out. There was a small amount of pus frankly, not much. There was some bleeding. I continued to irrigate it until the irrigation came back clean. All the excess saline removed. Area was washed and dried. A SHARRON drain placed into the wound and the rest of the incision closed with rosendo. The area was then covered with 4 x 4 gauze, Webril, and an Seb bandage. Total operative time was about 15 minutes. There was no complication during the case. Patient tolerated the procedure well, was brought to the regular recovery room in stable condition. ALISHA SOLIS M.D. [id number]
[2018-01-04] MEDS: NAPROXEN 375 MG TABLET (FP) PO SCH ×2 (11:53→18:00)
[2018-01-04] MEDS: ACETAMINOPHEN 325 MG TABLET (FP) PO PRN ×2 (12:34→20:26)
[2018-01-04] MEDS: oxyCODONE HCL 5 MG TABLET PO PRN ×2 (12:35→20:26)
--- NOTE | 2018-01-04 12:54 | PN ---
Physical Exam: SUBJECTIVE: Patient seen and examined at bedside. Agrees to undergo OR I&D of right knee abscess. Pain under control. No acute complaints. OBJECTIVE: Vital Signs Period Temp Pulse Resp BP Sys/Brady Pulse Ox Last 24 Hr 97.9 F-98.9 F 69-109 11-150 116-163/65-104 98-100 GENERAL: A&Ox3, NAD HEAD: NC/AT EYES: PERRLA, EOMI ENT: moist mucous membranes NECK: Trachea midline, full range of motion, supple. LUNGS: CTA b/l HEART: RRR no m/r/g ABDOMEN: +bs, soft, NTND, no HSM, no masses EXTREMITIES: 2+ pulses, warm, well-perfused, no edema; scant pus under R knee dressing NEUROLOGICAL: CN II-XII intact, 5/5 strength throughout, sensorium intact PSYCH: Normal mood, normal affect Laboratory Results - last 24 hr 01/03/18 01/03/18 01/03/18 15:45 17:30 20:30 WBC RBC Hgb Hct MCV MCH MCHC RDW Plt Count MPV Absolute Neuts (auto) Neutrophils % Lymphocytes % Monocytes % Eosinophils % Basophils % Nucleated RBC % Sodium Potassium Chloride Carbon Dioxide Anion Gap BUN Creatinine Creat Clearance w eGFR Random Glucose Calcium Vancomycin Pre-Dose 7.46 Blood Type A POSITIVE A POSITIVE Antibody Screen Negative 01/04/18 01/04/18 06:20 06:20 WBC 6.6 RBC 5.37 Hgb 15.0 Hct 45.2 MCV 84.3 MCH 27.9 MCHC 33.1 RDW 14.1 Plt Count 283 D MPV 8.6 Absolute Neuts (auto) 4.7 Neutrophils % 71.5 Lymphocytes % 16.4 D Monocytes % 10.9 H Eosinophils % 0.9 Basophils % 0.3 Nucleated RBC % 0 Sodium 141 Potassium 4.4 Chloride 104 Carbon Dioxide 26 D Anion Gap 11 BUN 14 Creatinine 1.0 Creat Clearance w eGFR > 60 Random Glucose 95 Calcium 9.4 Vancomycin Pre-Dose Blood Type Antibody Screen Active Medications Generic Name Dose Route Start Last Admin Trade Name Freq PRN Reason Stop Dose Admin Acetaminophen 325 mg 01/04/18 11:22 01/04/18 12:34 Tylenol - PO 325 mg Q6H PRN Administration PAIN SCALE 7-10 Fentanyl 50 mcg 01/04/18 10:53 01/04/18 11:25 Sublimaze Injection - IVPUSH 50 mcg [id number] PRN Administration PAIN-PACU ORDER X 4 DOSES ONLY Lactated Ringer's 1,000 mls @ 125 mls/hr 01/04/18 11:00 01/04/18 12:26 Lactated Ringers Solution IV Not Given ASDIR [facility] Vancomycin HCl 1,250 mg/ 250 mls @ 166.667 mls/hr 01/04/18 16:00 Dextrose IVPB 01/05/18 03:59 BID@0400,1600 [facility] Protocol Ibuprofen 800 mg 01/04/18 10:53 Caldolor Injection - IVPB Q6H PRN Pain - Pacu Naproxen 375 mg 01/04/18 17:30 Naprosyn - PO BIDWM [facility] Ondansetron HCl 4 mg 01/04/18 10:53 Zofran Injection IVPUSH Q6H PRN NAUSEA AND/OR VOMITING Oxycodone HCl 5 mg 01/04/18 11:22 01/04/18 12:35 Roxicodone - PO 5 mg Q6H PRN Administration PAIN SCALE 7-10 ASSESSMENT/PLAN: 32 y/o M w/ no significant PMHx admitted for cutaneous abscess overlying right knee 2/2 trauma involving garbage truck #cutaneous abscess -leukocytosis resolved -underwent OR I&D, debridement of infected R pre-patellar bursa with Dr. Max -ID consulted (Dr. Guzman) -to resume regular diet -start heparin subq tomorrow d/t bloody drainage following Sx -awaiting ortho recommendations for weight-bearing and return to work -Wound Cx: birch-sensitive S aureus -Vancomycin day 4, dose increased d/t low trough, f/u Vanc trough and ID -BCx NGTD -for pain: standing Naproxen w/ meals, Oxy 5 PRN for 7-10 pain -PT consulted #FEN -No IVF -lytes wnl -regular diet #DVT PPx -holding Lovenox until AM #dispo -med/surg Visit type - Emergency Visit Emergency Visit: No - New Patient This patient is new to me today: No - Critical Care Critical Care patient: No
--- NOTE | 2018-01-04 14:41 | PN ---
Teaching Attending Note Name of Resident: Patrice Deshpande ATTENDING PHYSICIAN STATEMENT I saw and evaluated the patient. I reviewed the resident's note and discussed the case with the resident. I agree with the resident's findings and plan as documented. SUBJECTIVE: no fever or chills . has minimal pain in R knee after procedure. has no CP or OSB . OBJECTIVE: NAD CV: RRR, no MRG Lungs; CTAB Ext: R knee in a dressing with SHANNA wraps and a drain with 4 cc of sanguinous fluid in it ASSESSMENT AND PLAN: 32 y/o lady with no significant PMH who presented with R knee pain and swelling. He was found to have cellulites of the knee with superficial abscess formation 1- Prepatellar bursitis: s/p open I&D in OR today - for I&D again tomoror w - MSSA in wound cx . will d/w ID choice of abx . currently on Vanco will start DVT px in Am as the drainage is bloody
--- NOTE | 2018-01-04 16:44 | PN ---
Progress Note (short form) - Note Progress Note: afebrile s/p operative washout today Vital Signs Period Temp Pulse Resp BP Sys/Brady Pulse Ox Last 24 Hr 97.9 F-98.9 F 69-109 11-150 115-163/65-104 98-100 cor-rrr lungs clear dressing knee with thai drain CBC, BMP 01/04/18 06:20 01/04/18 06:20 Microbiology 01/02/18 11:15 Knee - Right Gram Stain - Final 01/02/18 11:15 Knee - Right Wound Culture - Preliminary Staphylococcus Aureus 12/31/17 19:05 Blood - Peripheral Venous Blood Culture - Preliminary NO GROWTH OBTAINED AFTER 72 HOURS, INCUBATION TO CONTINUE FOR 2 DAYS. 12/31/17 19:05 Blood - Peripheral Venous Blood Culture - Preliminary NO GROWTH OBTAINED AFTER 72 HOURS, INCUBATION TO CONTINUE FOR 2 DAYS. imp/reccd s/p drainage of the knee abscess MSSA switch to cefazolin Problem List - Problems (1) Abscess of knee, right Code(s): L02.415 - CUTANEOUS ABSCESS OF RIGHT LOWER LIMB
[2018-01-04] MEDS: CEFAZOLIN 2 GM/D5W 2 GM/50 ML ML IVPB SCH (18:01)
[2018-01-05] MEDS: CEFAZOLIN 2 GM/D5W 2 GM/50 ML ML IVPB SCH ×3 (02:09→17:21)
[2018-01-05] MEDS: oxyCODONE HCL 5 MG TABLET PO PRN ×2 (04:22→13:13)
[2018-01-05] MEDS: ACETAMINOPHEN 325 MG TABLET (FP) PO PRN ×2 (04:22→13:13)
[2018-01-05 07:41] LABS: BASO % 0.5 % (0-2.0); EOS % 1.1 % (0-4.5); HEMATOCRIT 41.1 % (35.4-49); HEMOGLOBIN 13.8 GM/dL (11.7-16.9); LYMPH % 20.6 % (8-40); MCH 27.8 pg (25.7-33.7); MCHC 33.6 g/dl (32.0-35.9); MEAN CELL VOLUME 82.9 fl (80-96); MEAN PLT VOLUME 8.4 fl (7.5-11.1); MONO % 11.5 % (3.8-10.2); NEUT % 66.3 % (42.8-82.8); PLATELET COUNT 251 K/MM3 (134-434); RBC 4.95 M/mm3 (4.00-5.60); WHITE BLOOD COUNT 6.8 K/mm3 (4.0-10.0)
[2018-01-05 08:36] LABS: ANION GAP 9 MMOL/L (8-16); BLOOD UREA NITROGEN 15 mg/dL (7-18); CHLORIDE 102 mmol/L (98-107); CO2 30 mmol/L (21-32); GLUCOSE,RANDOM 87 mg/dL (74-106); POTASSIUM 4.4 mmol/L (3.5-5.1); SODIUM 141 mmol/L (136-145)
--- NOTE | 2018-01-05 10:14 | PN ---
Progress Note (short form) - Note Progress Note: afebrile s/p operative washout today Vital Signs Period Temp Pulse Resp BP Sys/Brady Pulse Ox Last 24 Hr 97.9 F-98.9 F 69-109 11-150 115-163/65-104 98-100 cor-rrr lungs clear dressing knee with thai drain CBC, BMP 01/04/18 06:20 01/04/18 06:20 Microbiology 01/02/18 11:15 Knee - Right Gram Stain - Final 01/02/18 11:15 Knee - Right Wound Culture - Preliminary Staphylococcus Aureus 12/31/17 19:05 Blood - Peripheral Venous Blood Culture - Preliminary NO GROWTH OBTAINED AFTER 72 HOURS, INCUBATION TO CONTINUE FOR 2 DAYS. 12/31/17 19:05 Blood - Peripheral Venous Blood Culture - Preliminary NO GROWTH OBTAINED AFTER 72 HOURS, INCUBATION TO CONTINUE FOR 2 DAYS. imp/reccd s/p drainage of the knee abscess MSSA continue cefazolin awaiting ortho followup Problem List - Problems (1) Abscess of knee, right Code(s): L02.415 - CUTANEOUS ABSCESS OF RIGHT LOWER LIMB
--- NOTE | 2018-01-05 11:00 | PN ---
Progress Note, Physician Chief Complaint: day 1 s/p right knee i and d - Current Medication List Current Medications: Active Medications Acetaminophen (Tylenol -) 325 mg PO Q6H PRN PRN Reason: PAIN SCALE 7-10 Last Admin: 01/05/18 04:22 Dose: 325 mg Fentanyl (Sublimaze Injection -) 50 mcg IVPUSH [id number] PRN PRN Reason: PAIN-PACU ORDER X 4 DOSES ONLY Last Admin: 01/04/18 11:25 Dose: 50 mcg Heparin Sodium (Porcine) (Heparin -) 5,000 unit SQ TID [facility] Cefazolin Sodium/Dextrose (Ancef 2 Gm Premixed Ivpb -) 2 gm in 50 mls @ 100 mls /hr IVPB Q8H-IV HORACIO Last Admin: 01/05/18 02:09 Dose: 100 mls/hr Ibuprofen (Caldolor Injection -) 800 mg IVPB Q6H PRN PRN Reason: Pain - Pacu Naproxen (Naprosyn -) 375 mg PO BIDWM [facility] Last Admin: 01/04/18 18:00 Dose: Not Given Ondansetron HCl (Zofran Injection) 4 mg IVPUSH Q6H PRN PRN Reason: NAUSEA AND/OR VOMITING Oxycodone HCl (Roxicodone -) 5 mg PO Q6H PRN PRN Reason: PAIN SCALE 7-10 Last Admin: 01/05/18 04:22 Dose: 5 mg - Objective Vital Signs: Vital Signs Temperature 98.6 F 01/05/18 06:00 Pulse Rate 82 01/05/18 06:00 Respiratory Rate 18 01/05/18 06:00 Blood Pressure 112/72 01/05/18 06:00 O2 Sat by Pulse Oximetry (%) 100 01/04/18 21:00 Labs: CBC, BMP 01/05/18 06:45 01/05/18 06:45 Assessment/Plan doing well after GA for knee i and d. No anesthetic issues/complications, pain is well controlled.
[2018-01-05] MEDS: NAPROXEN 375 MG TABLET (FP) PO SCH ×2 (11:02→17:22)
--- NOTE | 2018-01-05 11:57 | PN ---
Progress Note (short form) - Note Progress Note: Ortho Pt seen and examined s/p right knee I & D pod #1 Selected Entries 01/05/18 06:00 Temperature 98.6 F Pulse Rate 82 Respiratory 18 Rate Blood Pressure 112/72 Laboratory Tests 01/05/18 06:45 WBC 6.8 Hgb 13.8 Hct 41.1 Plt Count 251 incision clean with no drainage rosendo intact, SHARRON drain with minimal drainage, no erythema, rom 5-50 calf soft ,nt , nvi a/p SHARRON removed dressing changed IV abx as per ID WBAT ROM exercises as tolerated PT eval d/c planning
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
[2018-01-05] MEDS: HEPARIN NA (PORCINE) 5,000 UNITS/ML 1ML VIAL SQ SCH ×2 (13:13→21:23)
--- NOTE | 2018-01-05 15:36 | PN ---
Teaching Attending Note Name of Resident: Patrice Deshpande ATTENDING PHYSICIAN STATEMENT I saw and evaluated the patient. I reviewed the resident's note and discussed the case with the resident. I agree with the resident's findings and plan as documented. SUBJECTIVE: seen around 10 am pain is controlled. wants to walk . No fever or chills . No CP or SOB OBJECTIVE: NAD CV: RRR, no MRG Lungs; CTAB Ext: R knee in a dressing with SHANNA wraps and a drain with about 6 cc of sanguinous fluid in it ASSESSMENT AND PLAN: 32 y/o lady with no significant PMH who presented with R knee pain and swelling. He was found to have cellulites of the knee with superficial abscess formation 1- Prepatellar bursitis with cellulitis : s/p open I&D POD 1 -cont cefazolin for MSSA - WBAT. - drain was removed today start DVT px with heparin
[2018-01-06] MEDS: CEFAZOLIN 2 GM/D5W 2 GM/50 ML ML IVPB SCH ×3 (01:04→18:28)
[2018-01-06] MEDS: HEPARIN NA (PORCINE) 5,000 UNITS/ML 1ML VIAL SQ SCH (05:56)
[2018-01-06] MEDS ORDERED: PT OWN MED DRAWER 7, Y5N ONE (08:04)
[2018-01-06] MEDS: NAPROXEN 375 MG TABLET (FP) PO SCH ×2 (08:16→18:35)
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
--- NOTE | 2018-01-06 12:06 | PN ---
Teaching Attending Note Name of Resident: Patrice Deshpande ATTENDING PHYSICIAN STATEMENT I saw and evaluated the patient. I reviewed the resident's note and discussed the case with the resident. I agree with the resident's findings and plan as documented. SUBJECTIVE: No fever or chills . feels better. able to ambulate OBJECTIVE: NAD CV: RRR, no MRG Lungs; CTAB Ext: R knee with rosendo, a packing and blood tinged gauze. slight warmth of knee, no effusion ASSESSMENT AND PLAN: 32 y/o lady with no significant PMH who presented with R knee pain and swelling. He was found to have cellulites of the knee with superficial abscess formation 1- Prepatellar bursitis with cellulitis : s/p open I&D POD 2 - cont cefazolin for MSSA - WBAT. - cont to improve - d/w dr. kaur DVT px , lovenox
--- NOTE | 2018-01-06 12:34 | PN ---
Progress Note (short form) - Note Progress Note: afebrile s/p operative washout yesterday thai removed Vital Signs Period Temp Pulse Resp BP Sys/Brady Pulse Ox Last 24 Hr 97.8 F-98.5 F 78-104 10 108-116/62-76 98 cor-rrr lungs decreased bs at bases abd soft,nt ext knee without drainage, rosendo intact CBC, BMP 01/05/18 06:45 01/05/18 06:45 Microbiology 12/31/17 19:05 Blood - Peripheral Venous Blood Culture - Final NO GROWTH AFTER 5 DAYS INCUBATION 12/31/17 19:05 Blood - Peripheral Venous Blood Culture - Final NO GROWTH AFTER 5 DAYS INCUBATION 01/02/18 11:15 Knee - Right Gram Stain - Final 01/02/18 11:15 Knee - Right Wound Culture - Final Staphylococcus Aureus imp/reccd s/p drainage of the knee abscess MSSA continue cefazolin today hopefully switch to po keflex in am, will f/u in am d/w hospitalist Problem List - Problems (1) Abscess of knee, right Code(s): L02.415 - CUTANEOUS ABSCESS OF RIGHT LOWER LIMB
--- NOTE | 2018-01-06 17:11 | PN ---
Progress Note (short form) - Note Progress Note: Ortho Pt seen and examined s/p right knee I & D pod #2 Selected Entries 01/06/18 14:23 Temperature 97.9 F Pulse Rate 69 Respiratory 18 Rate Blood Pressure 110/62 Laboratory Tests 01/05/18 06:45 WBC 6.8 Hgb 13.8 Hct 41.1 Plt Count 251 incision clean with no drainage rosendo intact,no erythema, rom 0-50 calf soft ,nt , nvi a/p dressing changed IV abx as per ID, changing to PO tomorrow WBAT ROM exercises as tolerated PT eval ok to d/c from ortho pov d/w Dr. Ortiz
[2018-01-07] MEDS: CEFAZOLIN 2 GM/D5W 2 GM/50 ML ML IVPB SCH ×2 (02:35→09:40)
[2018-01-07 07:07] VITALS: BP 106/63
[2018-01-07] MEDS ORDERED: PT OWN MED DRAWER 7, Y5N ONE (08:58)
[2018-01-07] MEDS: NAPROXEN 375 MG TABLET (FP) PO SCH (09:00)
[2018-01-07] MEDS ORDERED: ENOXAPARIN NA (PORCINE) 40 MG/0.4 ML DISP.SYRIN SQ SCH (10:00)
--- NOTE | 2018-01-07 11:33 | PN ---
Progress Note (short form) - Note Progress Note: afebrile Vital Signs Period Temp Pulse Resp BP Sys/Brady Pulse Ox Last 24 Hr 97.9 F-98.4 F 69-77 18-20 106-110/62-63 99 cor-rrr lungs clear abd soft,nt ext knee CBC, BMP 01/05/18 06:45 01/05/18 06:45 Microbiology 12/31/17 19:05 Blood - Peripheral Venous Blood Culture - Final NO GROWTH AFTER 5 DAYS INCUBATION 12/31/17 19:05 Blood - Peripheral Venous Blood Culture - Final NO GROWTH AFTER 5 DAYS INCUBATION 01/02/18 11:15 Knee - Right Gram Stain - Final 01/02/18 11:15 Knee - Right Wound Culture - Final Staphylococcus Aureus imp/reccd s/p drainage of the knee abscess MSSA can switch to po keflex 500 qid for 2 weeks f/u with ortho d/w hospitalist Problem List - Problems (1) Abscess of knee, right Code(s): L02.415 - CUTANEOUS ABSCESS OF RIGHT LOWER LIMB
[2018-01-07 12:47] VITALS: PULSE 92; TEMP 98
--- NOTE | 2018-01-07 16:36 | PN ---
Progress Note (short form) - Note Progress Note: Subjective: No fever or chills. n opain in R knee , able to walk . Objective: Vital Signs: Last Vital Signs Temp Pulse Resp BP Pulse Ox 98.0 F 92 H 18 106/63 98 01/07/18 10:00 01/07/18 10:00 01/07/18 10:00 01/07/18 10:00 01/07/18 09:00 Physical Exam: NAD CV: RRR, no MRG Lungs; CTAB Ext: R knee with rosendo, no packing in wound . improved warmth and improved range of motion ASSESSMENT AND PLAN: 32 y/o man with no significant PMH who presented with R knee pain and swelling. He was found to have cellulites of the knee with superficial abscess formation 1- Prepatellar bursitis with cellulitis: s/p open I&D POD 3 - d/w Dr. kaur. switch to po keflex 500 q6h x 2 more weeks - WBAT. -packing removed. instructed to change gauze daily and keep it dry until ortho f/u on . - VNS and PT arranged. dc home referred to ortho , PCP , Dr. Lazaro, and ID time spent 40 min condition improved Visit type - Emergency Visit Emergency Visit: Yes ED Registration Date: 12/31/17 Care time: The patient presented to the Emergency Department on the above date and was hospitalized for further evaluation of their emergent condition. - New Patient This patient is new to me today: No - Critical Care Critical Care patient: No
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
== END 2018-01-07 12:25 | disposition home health service (06) | DRG 351 ==
LOC: JER 15:54 → JERBED 19:14 → J5S 21:54
PROVIDERS: ADMIT Internal Medicine; ATTEND Internal Medicine
PROC: 0Y9F0ZX Drainage of Right Knee Region, Open Approach, Diagnostic (ICD-10-PCS; 2018-01-04)
PROC: 0JBN0ZZ Excision of Right Lower Leg Subcutaneous Tissue and Fascia, Open Approach (ICD-10-PCS; principal; 2018-01-04 09:30)
DX: M71.161 Other infective bursitis, right knee (principal); M71.061 Abscess of bursa, right knee; F17.210 Nicotine dependence, cigarettes, uncomplicated; M00.9 Pyogenic arthritis, unspecified; L03.115 Cellulitis of right lower limb; D72.829 Elevated white blood cell count, unspecified; B95.61 Methicillin susceptible Staphylococcus aureus infection as the cause of diseases classified elsewhere; S81.001A Unspecified open wound, right knee, initial encounter; W22.8XXA Striking against or struck by other objects, initial encounter; Y92.59 Other trade areas as the place of occurrence of the external cause
CPT/HCPCS: 36415; 73564-TC-RT-FY; 73700-TC-RT; 80048; 80053; 83735; 84100; 85025; 85027; 86850; 86900; 86901; 87040; 87070; 87186; 87205; 90715; 94760; 97116-GP; 97161-GP; 99283-25; G0480; J1644

== ENCOUNTER 2021-10-14 07:50 | Emergency (ER) | payer OTHER, BC ==
[2021-10-14 08:00] VITALS: BP 128/79; PULSE 87; TEMP 98.7; BMI 25.1
[2021-10-14] MEDS ORDERED: DIPHTH,PERTUSS(ACELL),TET 0.5 ML DISP.SYRIN IM ONE ×2 (09:42→09:52)
== END 2021-10-14 10:34 | disposition home or self-care (01) ==
LOC: JERFT 07:50
PROC: 0HQEXZZ Repair Left Lower Arm Skin, External Approach (ICD-10-PCS; principal; 2021-10-14)
PROC: 3E0234Z Introduction of Serum, Toxoid and Vaccine into Muscle, Percutaneous Approach (ICD-10-PCS; 2021-10-14)
DX: S51.812A Laceration without foreign body of left forearm, initial encounter (principal); W25.XXXA Contact with sharp glass, initial encounter
CPT/HCPCS: 90715; 99284-25